=== PATIENT | male | born 1960 | race Two or more races ===

== ENCOUNTER 2016-09-10 14:13 | Emergency (ER) | payer SELFPAY ==
[~2016-09-10] VITALS: Ht 182.9 cm; Wt 88.9 kg
[2016-09-10 14:22] VITALS: BP 134/76
== END 2016-09-10 14:39 | disposition home or self-care (01) ==
LOC: ER 14:16
DX: L30.9 Dermatitis, unspecified (principal); I10 Essential (primary) hypertension; Z88.0 Allergy status to penicillin
CPT/HCPCS: A4606; Z7610